=== PATIENT | female | born 1995 | race Caucasian/White ===

== ENCOUNTER 2022-05-05 08:25 | Outpatient (CLI) | payer OTHER, SELFPAY ==
[2022-05-05 13:52] LABS: Cholesterol* 215 mg/dL (90-199); HDL Cholesterol* 46 mg/dL (>=50); LDL Cholesterol Calculated 131 mg/dL (<100); Triglycerides* 188 mg/dL (40-149)
[2022-05-06 20:06] LABS: Glucose* 88 mg/dL (60-115)
== END 2022-05-05 08:26 | disposition home or self-care (01) ==
PROVIDERS: PCP Physician Assistant Medical; Visit Provider Nurse Practitioner Family
DX: Z00.00 Encounter for general adult medical examination without abnormal findings (principal); K90.0 Celiac disease; R56.9 Unspecified convulsions; Z12.4 Encounter for screening for malignant neoplasm of cervix; Z13.6 Encounter for screening for cardiovascular disorders; Z13.1 Encounter for screening for diabetes mellitus
CPT/HCPCS: 80061; 82947; 83516; 87624; 88175

== ENCOUNTER 2022-06-02 08:28 | Outpatient (CLI) | payer OTHER, SELFPAY | END 2022-06-02 08:29 | disposition home or self-care (01) | LOC: KYNREF 08:30 | PROVIDERS: PCP Nurse Practitioner Family; Visit Provider Nurse Practitioner Family | DX: Z11.9 Encounter for screening for infectious and parasitic diseases, unspecified (principal) | CPT/HCPCS: 36415; 86480 ==

== ENCOUNTER 2023-03-16 09:04 | Outpatient (CLI) | payer OTHER, SELFPAY ==
--- NOTE | 2023-03-16 09:15 | CRLHL7_ITS ---
For Patients: As a result of the Century Cures Act, medical imaging exams and procedure reports are released immediately into your electronic medical record. You may view this report before your referring provider. If you have questions, please contact your health care provider. INDICATION: First trimester scan, establish dates. COMPARISON: None. TECHNIQUE: Real-time mccoy-scale imaging of the pelvis was performed. FINDINGS: Sonographic imaging demonstrates a single living intrauterine gestation. The embryo demonstrates a regular cardiac rate measuring 165 beats per minute. The embryo`s crown-rump length measurement of 3.2 cm corresponds to a gestational age of 10 weeks 1 day with a sonographic due date of 10/11/2023. There is a normal-appearing yolk sac. There are no gross abnormalities noted within the embryo at this early state of development. The gestational sac has a normal appearance. There is a 3.1 x 2.6 x 1.9 cm perigestational hemorrhage. The amount of fluid within the sac appears appropriate for gestational age. The cervix is closed. The myometrium appears normal. The ovaries are of normal size. Corpus luteal cyst right ovary. There are no suspicious fluid collections noted in the cul-de-sac. IMPRESSION: Single living intrauterine with sonographic gestational age 10 weeks 1 day and sonographic due date of 10/11/2023. Left-sided subchorionic hemorrhage measuring 3.1 x 2.6 x 1.9 cm. Dictated by Carlos Bhatt MD @ 03/16/2023 10:57:19 AM (Electronically Signed)
== END 2023-03-16 09:05 | disposition home or self-care (01) ==
LOC: US 09:04
PROVIDERS: PCP Nurse Practitioner Family; Visit Provider Physician Assistant
DX: Z34.91 Encounter for supervision of normal pregnancy, unspecified, first trimester (principal); Z3A.10 10 weeks gestation of pregnancy
CPT/HCPCS: 76801; 86703; 86803; 86850; 86900; 86901; 87086; 87340; 87491; 87591

== ENCOUNTER 2023-03-16 10:23 | Outpatient (CLI) | payer OTHER, SELFPAY ==
[2023-03-16 14:04] LABS: Chlamydia DNA Amplified* NOT DETECTED (No Detected); GC DNA Amplified* NOT DETECTED (No Detected)
== END 2023-03-16 10:24 | disposition home or self-care (01) ==
PROVIDERS: PCP Nurse Practitioner Family; Visit Provider Physician Assistant
DX: Z34.91 Encounter for supervision of normal pregnancy, unspecified, first trimester (principal); Z3A.10 10 weeks gestation of pregnancy
CPT/HCPCS: 86592; 86703; 86762; 86787; 86803; 86850; 86900; 86901; 87086; 87340; 87491; 87591

== ENCOUNTER 2023-05-26 08:07 | Outpatient (CLI) | payer OTHER, SELFPAY ==
--- NOTE | 2023-05-26 08:15 | CRLHL7_ITS ---
For Patients: As a result of the Century Cures Act, medical imaging exams and procedure reports are released immediately into your electronic medical record. You may view this report before your referring provider. If you have questions, please contact your health care provider. INDICATION: Evaluate anatomy. COMPARISON: 03/16/2023 TECHNIQUE: Real time mccoy scale imaging of the fetus was performed as well as color Doppler analysis of the umbilical vessels. FINDINGS: Sonographic imaging demonstrates a single living intrauterine gestation. Fetus demonstrates a regular cardiac rate of 157 beats per minute. Fetus has a vertex position. The placenta lies anteriorly without evidence of placenta previa. The edge of the placenta is located 8.5 cm from the internal cervical os. Amniotic fluid volume appears normal. Single deepest vertical pocket: 4.6 cm. The cervix is closed and measures 4.1 cm in length. The composite ultrasound gestational age is calculated at 20 weeks 3 days with an estimated sonographic due date of 10/10/2023. The estimated weight is 354 grams which lies at the 71st %. The following biometric measurements were obtained: Biparietal diameter: 5.0 cm/21 weeks 1 day 89th% Head circumference: 18.0 cm/20 weeks 3 days 61st% Abdominal circumference: 15.1 cm/20 weeks 2 days 55th% Femur length: 3.4 cm/20 weeks 4 days 62nd% The HC/AC ratio measures: 1.19 range (1.07-1.25) On anatomic survey, there is a normal appearance of the cerebral ventricles, cavum septi pellucidi, cisterna magna and cerebellum. The nose, lips, and facial profile appear normal. The cervical, thoracic and lumbar spine are well visualized and appear normal. The left and right ventricular outflow tracts appear normal. Echogenic left ventricular focus measuring 2 millimeters. The diaphragm and stomach appear normal. The kidneys and bladder also appear normal. There is a normal three-vessel cord and cord insertion site. The four extremities appear normal. IMPRESSION: Concordance of clinical and sonographic dating. 2 millimeter echogenic focus left ventricle. Remainder of the anatomic survey is normal. Level 2 ultrasound suggested. Estimated weight 71st percentile. Abdominal circumference 55th percentile. Dictated by Carlos Bhatt MD @ 05/26/2023 9:42:56 AM (Electronically Signed)
== END 2023-05-26 08:08 | disposition home or self-care (01) ==
LOC: US 08:08
PROVIDERS: PCP Nurse Practitioner Family; Visit Provider Obstetrics & Gynecology
DX: Z34.02 Encounter for supervision of normal first pregnancy, second trimester (principal); Z3A.20 20 weeks gestation of pregnancy
CPT/HCPCS: 76805